=== PATIENT | female | born 1990 | race Caucasian/White ===

== ENCOUNTER 2016-10-28 22:48 | Inpatient (IN) | payer OTHER ==
[~2016-10-28] VITALS: Ht 157.5 cm; Wt 73.6 kg
[2016-10-28] MEDS ORDERED: traZODone 50 MG TAB As Ordered ONE (23:32)
[2016-10-29] MEDS ORDERED: TRAZ150T14 PO (00:18)
[2016-10-29] MEDS ORDERED: GABA800T PO (00:18)
[2016-10-29] MEDS ORDERED: PROZ20CA11 PO (00:18)
[2016-10-29] MEDS ORDERED: KLON1TAB PO (00:18)
[2016-10-29] MEDS ORDERED: ATIV1TAB7 PO (00:18)
[2016-10-29] MEDS ORDERED: ACETAMINOPHEN TAB 650MG DOSE (2X325MG) PO PRN (01:00)
[2016-10-29] MEDS ORDERED: MOM 30ML SUSPENSION UDC PO PRN (01:00)
[2016-10-29] MEDS ORDERED: MAALOX 30 ML SUSP *UDC PO PRN (01:00)
--- NOTE | 2016-10-29 02:27 | EDDOCDS ---
Physician Documentation [facility] Name: Radha Shankar Age: 26 yrs Sex: Female : 1990 Arrival Date: 10/28/2016 Time: 22:48 Bed [facility] Private MD: ROCKY WILEY Disposition: 10/29/16 01:26 Hospitalization ordered by Solitario Mcconnell for Inpatient Admission. Preliminary diagnosis is Suicidal ideations. - Bed requested for Admit. - Status is Inpatient Admission. rw1 - Condition is Stable. - Problem is an ongoing problem. - Symptoms are unchanged. Historical: - Allergies: Clindamycin; Cogentin; Compazine; Reglan; Toradol; - Home Meds: 1. Klonopin 1 mg Oral tab 1 tab 2 times per day 2. Prozac 20 mg Oral cap 1 cap once daily 3. gabapentin 800 mg Oral tab 1 tab 3 times per day 4. trazodone 150 mg Oral Tb24 1 tab once daily 5. Ativan 1 mg Oral tab 1 tab 3 times per day - PMHx: Bipolar disorder; PTSD; Migraines; Seizures; Depression; Anxiety Disorder; insomnia; syncope; - PSHx: ; Hysterectomy; Tubal ligation; Salpingectomy- Bilateral; Oophorectomy - Left; - Social history: Smoking status: Patient uses tobacco products, current every day smoker. Patient uses street drugs, marijuana, No barriers to communication noted, The patient speaks fluent Thai. - Family history: Not pertinent. - : The pt / caregiver states he / she is not on anticoagulants. Home medication list is obtained from the patient. - Exposure Risk Screening:: None identified. PLATE CUTTER: 10/28 23:10 LMP N/A - Hysterectomy rw Vital Signs: 23:10 BP 112 / 69; Pulse 68; Resp 16; Temp 96.8(T); Pulse Ox 96% on R/A; Weight 69.4 kg / 153 rw1 lbs (R); Height 5 ft. 2 in. (157.48 cm); Pain 9/10; 10/29 02:15 BP 102 / 56; Pulse 60; Resp 16; Temp 97.3(T); Pulse Ox 100% on R/A; Pain 0/10; rw1 10/28 23:10 Body Mass Index 27.98 (69.40 kg, 157.48 cm) rw1 10/28 23:10 c/o bladder pain MD aware rw1 MDM: 22:50 Consult PFS/PSA/Video System Repairer ordered. br1 22:50 Consult PFS/PSA/Video System Repairer: Patient's case requires discussion with on-call br1 Psychiatrist ordered. 22:50 PSA/PFS to call Nursing Barman, to enter patient data on [place] Safe Act if patient br1 involuntarily admitted or transferred for SI or HI ordered. 22:50 Confirm accurate psychiatric medication list and times of last dosage ordered. br1 22:50 Detain Pt Until Medically/PFS Cleared ordered. br1 23:15 traZODone 150 mg PO once ordered. br1 23:27 Consult PFS/PSA/Socail Worker: Cleared medically for eval ordered. br1 23:54 BED REQUEST+ADM ordered. EDMS 10/29 00:01 Financial registration complete. hs2 00:16 [facility] Payment Agreement was scanned into [employer] and attached to record. hs2 01:00 Admit to [facility]: ordered. EDMS 01:00 REGULAR DIET ordered. EDMS 01:09 Consult PFS/PSA/Socail Worker: Cleared medically for eval complete. jl 01:09 Consult PFS/PSA/Video System Repairer complete. jl 01:09 Consult PFS/PSA/Video System Repairer: Patient's case requires discussion with on-call jl Psychiatrist complete. 01:09 PSA/PFS to call Nursing Barman, to enter patient data [place] Safe [place] if patient jl involuntarily admitted or transferred for SI or HI complete. 01:12 [facility] Legal paperwork was scanned into [employer] and attached to record. jl 01:51 [facility] Legal paperwork was scanned into [employer] and attached to record. jl Administered Medications: 10/28 23:38 Drug: traZODone 150 mg [trazodone 50 mg tablet (3 tabs)] Route: PO; rw1 10/29 01:28 Follow up: Response: No Adverse Reaction rw1 Signatures: Dispatcher [employer] EDMS Joey Valladares, PSA PSA Julio Mariscal,COORDINATOR OF EVALUATION COORDINATOR OF EVALUATION rw1 Adam Lazcano, DO mm11 Jeff Lazaro MD MD br1 Amanda Allen, Reg Reg hs2 Glo Barry RN RN tm5 The chart was reviewed and I authenticate all verbal orders and agree with the evaluation and treatment provided.Attachments: 00:16 [facility] Payment Agreement hs2 MTDD
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
[2016-10-29] MEDS ORDERED: IBUPROFEN 400 MG TAB PO ONE (03:30)
[2016-10-29] MEDS ORDERED: LORazepam 1 MG TAB PO ONE (03:30)
[2016-10-29] MEDS: FLUoxetine 20 MG CAP PO SCH (08:55)
[2016-10-29] MEDS ORDERED: clonazePAM 1 MG TAB PO SCH (09:00)
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
[2016-10-29] MEDS ORDERED: clonazePAM 1 MG TAB PO PRN (09:35)
--- NOTE | 2016-10-29 09:45 | HPEPDOC ---
Medical History and Physical Date of Admission Oct 29, 2016 at 02:30 History and Physical PCP: [facility] ATTENDING: Dr. Rom Jiménez HPI: 26yoF admitted to [facility] for bipolar disorder, being medically examined today. Patient states she is having right lower quadrant abdominal pain. She reports it has been going on for approximately 1 month. She also reports a recent urinary tract infection and finished Cipro approximately 2 weeks ago. She is denying dysuria, frequency, urgency, hematuria, change in urinary color or odor. She denies vaginal discharge. No concern for STI. She states she does have a history of ovarian cyst and still has her right ovary. Denies any fevers , chills, weakness, fatigue, GUEVARA, CP, SOB, cough, palpitations, N/V/D or changes in bowel or bladder habits. PMHx: Bipolar disorder PTSD BPD Goiter Chronic migraine headaches-Botox injection as per [facility] neurology History of seizure disorder-last seizure 3 years ago Anxiety / depression Self-mutilation Insomnia PSHX: Tubal ligation Partial hysterectomy/bilateral salpingectomy, left oophorectomy. SOCHX: Resides in: [facility] Marital Status: Kids: 2 Employment: Unemployed Tobacco use: Half pack per day ETOH: Denies Illicit Drugs: Marijuana 1-2 times per week IV Drug Use: Denies Tattoos done unprofessionally: Several. HIV/hepatitis screening 2016. Patient states negative. FAMHX: Mother: Alive, history of breast cancer Father: Alive, bipolar disorder, ADHD, depression, COPD Siblings: Alive, sister with history of depression, brother with history of alcoholism, depression. Children: Alive, son with history of autism. Unexpected deaths due to medical reasons: None. ROS: As noted in HPI, otherwise 11pt ROS of systems reviewed and remarkable only for LMP-hysterectomy. PE: GEN: 26yoF, appears stated age. Well-nourished, well developed. No acute distress. Alert and oriented x 3. Pleasant, interactive. HEENT: Normocephalic, atraumatic. Pupils are equal, round, and reactive to light. Extraocular movements are intact. No nystagmus appreciated. Sclera are nonicteric. Conjunctiva without injection. Nose midline. Nasal turbinates without bogginess. EACs both patent BL. TMs both visualized and moore with good cone of light, no bulging or erythema. No facial asymmetry. Moist mucous membranes. Dentition fair. Pharynx pink and moist, no cobblestoning. Neck supple , trachea midline. No lymphadenopathy or thyromegaly appreciated. CHEST: Regular rate and rhythm, +S1, +S2 LUNGS: Clear to auscultation bilaterally. No wheezes, rales, or rhonchi. Breathing appears symmetric and easy. Patient is speaking in full sentences. No accessory muscle use. ABD: Round, soft, tenderness with palpation is noted in the right lower quadrant area and suprapubic area, non-distended. +Bowel sounds throughout. No rebound or guarding. No costovertebral angle tenderness. EXT: Pulses 2+ bilaterally dorsalis pedis and radial. No lower extremity edema appreciated. SKIN: [place], dry, warm. Capillary refill <2sec. No rashes. Superficial laceration is noted on the left inner forearm. Several black what appear to be tattoos are noted on the forearms bilaterally however the patient states this is black sharpie marker. NEURO: Alert and oriented x 3. Cranial nerves III-XII are intact. No focal deficits appreciated. EKG: [facility] ST 122. Rightward axis. Labs [facility] WBC 11.5 Hgb 13.6 Hct 43.0 Plt 248 Na 142 K 4.2 Cl 100 Ca 9.4 Gluc 122 BUN 5 Scr 0.6 AST 19 ALT 26 TSH 0.980 Toxicology remarkable for cannabinoid. HCG neg. A&P: 26yoF admitted to [facility] for bipolar disorder 1. Psych. Plan per Psychiatry. EKG on file from transferring facility. 2. Nicotine dependence. Patch available. 3. Chronic migraine headache. Patient states she receives Botox injections as per [facility] neurology. 4. Follow up with PCP on discharge. [facility] adult medicine. 5. Substance abuse. Per psychiatry. 6. Recent UTI. Status post treatment with Cipro. Check urinalysis and urine culture. 7. Abdominal pain. Check CBC with differential, CMP. CT scan abdomen and pelvis. 8. Superficial laceration left inner forearm. Appears to be healing. No signs of infection. Keep area clean and dry. Monitor. 9. History of tattoos completed unprofessionally. Patient states screening for HIV/hepatitis completed 2015. Declines rescreening. 10. Staff member was present throughout exam, Yuly MOYER. Vital Signs pending Laboratory Data Labs 24H Laboratory Tests 2 10/29/16 08:55: Urine Amorphous Sediment , Urine Appearance HAZY, Urine Color YELLOW, Urine pH 6.0, Urine Specific [place] 1.009, Urine Protein NEGATIVE, Urine Glucose (UA) NEGATIVE, Urine Ketones NEGATIVE, Urine Urobilinogen 0.2, Urine Bilirubin NEGATIVE, Urine Leukocyte Esterase NEGATIVE, Urine Bacteria (Auto) NEGATIVE, Urine Blood 1+H, Urine Calcium Carbonate Cryst(Auto) , Urine Calcium Oxalate Cryst (Auto) , Urine Calcium Phosphate Lilia (Auto) , Urine Cellular Casts , Urine Cystine Crystals , Urine Granular Casts (Auto) , Urine Hyaline Casts (Auto ) 0, Urine Leucine Crystals , Urine Mucus (Auto) SMALL, Urine Nitrite NEGATIVE, Urine Oval Fat Bodies (Auto) , Urine RBC (Auto) 2, Urine Renal Epithelial Cells , Urine Sperm (Auto) , Urine Squamous Epithelial Cells 13, Urine Transitional Epithelial Cells , Urine Trichomonas (Auto) , Urine Triple Phosphate Cryst (Auto ) , Urine Tyrosine Crystals , Urine Uric Acid Crystals (Auto) , Urine WBC (Auto ) 1, Urine Waxy Casts (Auto) , Urine Yeast-Like Cells (Auto) Microbiology Microbiology 10/29/16 Urine Culture, Received Pending Home Medications Scheduled Clonazepam (Klonopin) 1 Mg Tab 1 MG PO BID Fluoxetine HCl (Prozac) 20 Mg Cap 20 MG PO DAILY Gabapentin (Gabapentin) 800 Mg Tab 800 MG PO TID Scheduled PRN Lorazepam (Ativan) 1 Mg Tab 1 MG PO TID PRN PRN ANXIETY Trazodone HCl (Trazodone HCl) 150 Mg Tab 150 MG PO QHS PRN PRN SLEEP Allergies Coded Allergies: Benztropine (Unverified Adverse Reaction, Severe, URINARY RETENTION, ) Clindamycin (Unverified Adverse Reaction, Intermediate, VOMITING, 10/29/16) Ketorolac Tromethamine (Unverified Adverse Reaction, Intermediate, JITTERS , 10/29/16) Metoclopramide (Unverified Adverse Reaction, Intermediate, JITTERS, ) Prochlorperazine (Unverified Adverse Reaction, Intermediate, JITTERS, 10/29) Pauly Cortez Oct 29, 2016 09:45
[2016-10-29 10:51] VITALS: BP 102/60
--- NOTE | 2016-10-29 12:35 | REP ---
CT ABDOMEN AND PELVIS WITHOUT CONTRAST: HISTORY: Abdominal pain in the right lower quadrant. FINDINGS: Preliminary machine fixer radiograph shows an unremarkable bowel gas pattern. Lung bases are clear. There is no evidence of pleural effusion or upper abdominal ascites. There is mild diffuse fatty infiltration of the liver with areas of fat sparing near the gallbladder. No liver mass lesion is seen. Spleen is unremarkable. No adrenal lesion is seen. The kidneys show no evidence of hydronephrosis or intrarenal calculus. No mass or cyst is seen. No pancreatic abnormality is observed. Small and large bowel loops are unremarkable in the upper abdomen. A normal appendix is seen posterior to the cecum in the right lower quadrant. No inflammatory changes are seen. The patient is status post hysterectomy. No pelvic mass or adenopathy is seen. Urinary bladder is unremarkable. No abdominal wall defect is seen. Bone window settings demonstrate no bony destructive lesion. IMPRESSION: Mild fatty infiltration of the liver. Normal appendix seen. The patient status post hysterectomy. Otherwise unremarkable. Signed by Darrick Gonzales MD 10/29/2016 02:34 P
[2016-10-29 13:45] LABS: BASO % 0.3 % (0.0-1.0); EOS # 0.1 K/mm3 (0.0-0.50); EOS % 1.2 % (0.0-3.0); LARGE UNSTAINED CELL # 0.2 K/mm3 (0.0-0.4); LARGE UNSTAINED CELL % 2.4 % (0.0-4.0); LYMPH # 2.2 K/mm3 (1.5-6.5); LYMPH % 27.4 % (24.0-44.0); MEAN CORPUSCULAR HEMOGLOBIN 29.1 pg (27.0-33.0); MEAN CORPUSCULAR HGB CONC 33.7 g/dl (32.0-36.5); MEAN CORPUSCULAR VOLUME 86.4 fl (80.0-96.0); MONO # 0.4 K/mm3 (0.0-0.8); NEUTROPHILS # 5.2 K/mm3 (1.8-7.7); NEUTROPHILS % 63.7 % (36.0-66.0); PLATELET COUNT, AUTOMATED 206 k/mm3 (150-450); RED CELL DISTRIBUTION WIDTH 13.3 % (11.5-14.5); WHITE BLOOD COUNT 8.2 K/mm3 (4.0-10.0)
[2016-10-29 14:20] LABS: ALBUMIN 3.3 GM/DL (3.2-5.2); ALBUMIN/GLOBULIN RATIO 0.87 (1.00-1.93); ALKALINE PHOSPHATASE 107 U/L (45-117); ALT/SGPT 30 U/L (12-78); ANION GAP 8 MEQ/L (8-16); AST/SGOT 14 U/L (15-37); BILIRUBIN,TOTAL 0.2 MG/DL (0.2-1.0); BLOOD UREA NITROGEN 6 MG/DL (7-18); CALCIUM LEVEL 9.1 MG/DL (8.5-10.1); CARBON DIOXIDE LEVEL 31 MEQ/L (21-32); CHLORIDE LEVEL 102 MEQ/L (98-107); CREATININE FOR GFR 0.62 MG/DL (0.55-1.02); GLOMERULAR FILTRATION RATE > 60.0 (>60); GLUCOSE, FASTING 113 MG/DL (70-105); POTASSIUM SERUM 4.3 MEQ/L (3.5-5.1); SODIUM LEVEL 141 MEQ/L (136-145); TOTAL PROTEIN 7.1 GM/DL (6.4-8.2)
[2016-10-29] MEDS ORDERED: hydrOXYzine 50 MG TAB PO PRN (14:45)
[2016-10-29] MEDS: clonazePAM 0.5 MG TAB PO PRN ×2 (16:34→22:36)
[2016-10-29 18:00] VITALS: BP 146/58
[2016-10-29] MEDS ORDERED: PRAZOSIN 1 MG CAP PO SCH (21:00)
[2016-10-29] MEDS ORDERED: traZODone 50 MG TAB PO SCH (21:00)
[2016-10-29 22:36] VITALS: BP 134/67
[2016-10-30 06:37] VITALS: BP 108/16
[2016-10-30] MEDS: FLUoxetine 20 MG CAP PO SCH (08:59)
[2016-10-30] MEDS: clonazePAM 0.5 MG TAB PO PRN (09:46)
[2016-10-30] MEDS ORDERED: HYDRO50TAB PO (10:14)
[2016-10-30] MEDS ORDERED: FLUO20CA9 PO (10:14)
[2016-10-30] MEDS ORDERED: MINI1CAP PO (10:14)
[2016-10-30] MEDS ORDERED: TRAZO50TA PO (10:14)
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
[2016-10-30 11:20] VITALS: BP 126/60
--- NOTE | 2016-10-31 03:27 | EDDOCDS ---
Physician Documentation [facility] Name: Radha Shankar Age: 26 yrs Sex: Female : 1990 Arrival Date: 10/28/2016 Time: 22:48 Bed [facility] Private MD: ROCKY WILEY Disposition: 10/29/16 01:26 Hospitalization ordered by Solitario Mcconnell for Inpatient Admission. Preliminary diagnosis is Suicidal ideations. - Bed requested for Admit. - Status is Inpatient Admission. rw1 - Condition is Stable. - Problem is an ongoing problem. - Symptoms are unchanged. Historical: - Allergies: Clindamycin; Cogentin; Compazine; Reglan; Toradol; - Home Meds: 1. Klonopin 1 mg Oral tab 1 tab 2 times per day 2. Prozac 20 mg Oral cap 1 cap once daily 3. gabapentin 800 mg Oral tab 1 tab 3 times per day 4. trazodone 150 mg Oral Tb24 1 tab once daily 5. Ativan 1 mg Oral tab 1 tab 3 times per day - PMHx: Bipolar disorder; PTSD; Migraines; Seizures; Depression; Anxiety Disorder; insomnia; syncope; - PSHx: ; Hysterectomy; Tubal ligation; Salpingectomy- Bilateral; Oophorectomy - Left; - Social history: Smoking status: Patient uses tobacco products, current every day smoker. Patient uses street drugs, marijuana, No barriers to communication noted, The patient speaks fluent Bahraini. - Family history: Not pertinent. - : The pt / caregiver states he / she is not on anticoagulants. Home medication list is obtained from the patient. - Exposure Risk Screening:: None identified. 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 2 in. (157.48 cm); Pain 9/10; 10/29 02:15 BP 102 / 56; Pulse 60; Resp 16; Temp 97.3(T); Pulse Ox 100% on R/A; Pain 0/10; rw1 10/28 23:10 Body Mass Index 27.98 (69.40 kg, 157.48 cm) rw1 10/28 23:10 c/o bladder pain MD aware rw1 MDM: 22:50 Consult PFS/PSA/Head Of Advertising ordered. br1 22:50 Consult PFS/PSA/Head Of Advertising: Patient's case requires discussion with on-call br1 Psychiatrist ordered. 22:50 PSA/PFS to call Nursing Dermatology Nurse Practitioner, to enter patient data on [place] Safe [place] if patient br1 involuntarily admitted or transferred for SI or HI ordered. 22:50 Confirm accurate psychiatric medication list and times of last dosage ordered. br1 22:50 Detain Pt Until Medically/PFS Cleared ordered. br1 23:15 traZODone 150 mg PO once ordered. br1 23:27 Consult PFS/PSA/Socail Worker: Cleared medically for eval ordered. br1 23:54 BED REQUEST+ADM ordered. EDMS 10/29 00:01 Financial registration complete. hs2 00:16 [facility] Payment Agreement was scanned into legalPAD and attached to record. hs2 01:00 Admit to IM: ordered. EDMS 01:00 REGULAR DIET ordered. EDMS 01:09 Consult PFS/PSA/Socail Worker: Cleared medically for eval complete. jl 01:09 Consult PFS/PSA/Head Of Advertising complete. jl 01:09 Consult PFS/PSA/Head Of Advertising: Patient's case requires discussion with on-call jl Psychiatrist complete. 01:09 PSA/PFS to call Nursing Dermatology Nurse Practitioner, to enter patient data [place] if patient jl involuntarily admitted or transferred for SI or HI complete. 01:12 [facility] Legal paperwork was scanned into legalPAD and attached to record. jl 01:51 [facility] Legal paperwork was scanned into legalPAD and attached to record. jl 12:01 T-Sheet-- Draft Copy was scanned into legalPAD and attached to record. gb Administered Medications: 10/28 23:38 Drug: traZODone 150 mg [trazodone 50 mg tablet (3 tabs)] Route: PO; rw1 10/29 01:28 Follow up: Response: No Adverse Reaction rw1 Signatures: Dispatcher [employer] EDMS Joey Valladares, PSA PSA jl Amanda Bailey, Reg Reg gb Julio Gonzales,WAREHOUSE FORKLIFT OPERATOR WAREHOUSE FORKLIFT OPERATOR rw1 Adam Lazcano DO DO mm11 Jeff Lazaro MD MD br1 Amanda Allen, Reg Reg hs2 Glo Barry,RN RN tm5 The chart was reviewed and I authenticate all verbal orders and agree with the evaluation and treatment provided.Attachments: 00:16 [facility] Payment Agreement hs2 12:01 T-Sheet-- Draft Copy gb Chart Complete MTDD
--- NOTE | 2016-10-31 03:27 | EDDOCDS ---
Physician Documentation [facility] Name: Radha Shankar Age: 26 yrs Sex: Female : 1990 Arrival Date: 10/28/2016 Time: 22:48 Bed [facility] Private MD: ROCKY WILEY Disposition: 10/29/16 01:26 Hospitalization ordered by Solitario Mcconnell for Inpatient Admission. Preliminary diagnosis is Suicidal ideations. - Bed requested for Admit. - Status is Inpatient Admission. rw1 - Condition is Stable. - Problem is an ongoing problem. - Symptoms are unchanged. Historical: - Allergies: Clindamycin; Cogentin; Compazine; Reglan; Toradol; - Home Meds: 1. Klonopin 1 mg Oral tab 1 tab 2 times per day 2. Prozac 20 mg Oral cap 1 cap once daily 3. gabapentin 800 mg Oral tab 1 tab 3 times per day 4. trazodone 150 mg Oral Tb24 1 tab once daily 5. Ativan 1 mg Oral tab 1 tab 3 times per day - PMHx: Bipolar disorder; PTSD; Migraines; Seizures; Depression; Anxiety Disorder; insomnia; syncope; - PSHx: ; Hysterectomy; Tubal ligation; Salpingectomy- Bilateral; Oophorectomy - Left; - Social history: Smoking status: Patient uses tobacco products, current every day smoker. Patient uses street drugs, marijuana, No barriers to communication noted, The patient speaks fluent Singaporean. - Family history: Not pertinent. - : The pt / caregiver states he / she is not on anticoagulants. Home medication list is obtained from the patient. - Exposure Risk Screening:: None identified. 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 2 in. (157.48 cm); Pain 9/10; 10/29 02:15 BP 102 / 56; Pulse 60; Resp 16; Temp 97.3(T); Pulse Ox 100% on R/A; Pain 0/10; rw1 10/28 23:10 Body Mass Index 27.98 (69.40 kg, 157.48 cm) rw1 10/28 23:10 c/o bladder pain MD aware rw1 MDM: 22:50 Consult PFS/PSA/Licensed Sales Assistant ordered. br1 22:50 Consult PFS/PSA/Licensed Sales Assistant: Patient's case requires discussion with on-call br1 Psychiatrist ordered. 22:50 PSA/PFS to call Nursing Broomcorn Grader, to [place] data [place] if patient br1 involuntarily admitted or transferred for SI or HI ordered. 22:50 Confirm accurate psychiatric medication list and times of last dosage ordered. br1 22:50 Detain Pt Until Medically/PFS Cleared ordered. br1 23:15 traZODone 150 mg PO once ordered. br1 23:27 Consult PFS/PSA/Socail Worker: Cleared medically for eval ordered. br1 23:54 BED REQUEST+ADM ordered. EDMS 10/29 00:01 Financial registration complete. hs2 00:16 [facility] Payment Agreement was scanned into [employer] and attached to record. hs2 01:00 Admit to IM: ordered. EDMS 01:00 REGULAR DIET ordered. EDMS 01:09 Consult PFS/PSA/Socail Worker: Cleared medically for eval complete. jl 01:09 Consult PFS/PSA/Licensed Sales Assistant complete. jl 01:09 Consult PFS/PSA/Licensed Sales Assistant: Patient's case requires discussion with on-call jl Psychiatrist complete. 01:09 PSA/PFS to call Nursing Broomcorn Grader, to [place] data [place] if patient jl involuntarily admitted or transferred for SI or HI complete. 01:12 [facility] Legal paperwork was scanned into [employer] and attached to record. jl 01:51 [facility] Legal paperwork was scanned into [employer] and attached to record. jl 12:01 T-Sheet-- Draft Copy was scanned into [employer] and attached to record. gb Administered Medications: 10/28 23:38 Drug: traZODone 150 mg [trazodone 50 mg tablet (3 tabs)] Route: PO; rw1 10/29 01:28 Follow up: Response: No Adverse Reaction rw1 Signatures: Dispatcher [employer] EDMS Joey Valladares, PSA PSA jl Amanda Bailey, Reg Reg gb Julio Gonzales,RN UNIT MANAGER RN UNIT MANAGER rw1 Adam Lazcano DO DO mm11 Jeff Lazaro MD MD br1 Amanda Allen, Reg Reg hs2 Glo Barry,RN RN tm5 The chart was reviewed and I authenticate all verbal orders and agree with the evaluation and treatment provided.Attachments: 00:16 [facility] Payment Agreement hs2 12:01 T-Sheet-- Draft Copy gb Chart Complete MTDD
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
== END 2016-10-30 12:00 | disposition home or self-care (01) | DRG 753 ==
LOC: M ED 22:48 → M PSY 10-29 02:30
PROVIDERS: ADMIT Psychiatry & Neurology Psychiatry; ATTEND Psychiatry & Neurology Psychiatry
DX: F31.60 Bipolar disorder, current episode mixed, unspecified (principal); R45.851 Suicidal ideations; F60.9 Personality disorder, unspecified; F43.10 Post-traumatic stress disorder, unspecified; G43.909 Migraine, unspecified, not intractable, without status migrainosus; F17.210 Nicotine dependence, cigarettes, uncomplicated; R10.31 Right lower quadrant pain; Z81.8 Family history of other mental and behavioral disorders; Z88.8 Allergy status to other drugs, medicaments and biological substances; Z90.711 Acquired absence of uterus with remaining cervical stump; Z98.51 Tubal ligation status; Z90.722 Acquired absence of ovaries, bilateral; Z80.3 Family history of malignant neoplasm of breast